=== PATIENT | male | born 1985 | race Caucasian/White ===

== ENCOUNTER 2018-10-25 03:40 | Emergency (ER) | payer SELFPAY ==
[~2018-10-25] VITALS: Ht 180.3 cm; Wt 68.2 kg
[2018-10-25 03:46] VITALS: Ht 180.3 cm; Wt 68.2 kg
[2018-10-25] MEDS ORDERED: HYDROCODON-ACE1 EA10 PO (04:25)
[2018-10-25 04:31] VITALS: BP 122/69
== END 2018-10-25 04:31 | disposition home or self-care (01) ==
LOC: D.ER 03:40
DX: S52.612A Displaced fracture of left ulna styloid process, initial encounter for closed fracture (principal); W18.30XA Fall on same level, unspecified, initial encounter; Y93.89 Activity, other specified; Y92.019 Unspecified place in single-family (private) house as the place of occurrence of the external cause

== ENCOUNTER 2019-06-19 21:28 | Emergency (ER) | payer SELFPAY ==
[~2019-06-19] VITALS: Ht 180.3 cm; Wt 67.3 kg
[~2019-06-19 21:28] MED LIST: HYDROCODON-ACE1 EA10 PO
[2019-06-19 22:17] VITALS: BP 117/70; Ht 180.3 cm; Wt 67.3 kg
== END 2019-06-19 23:00 | disposition left against medical advice (07) ==
LOC: D.ER 21:28
DX: S52.612A Displaced fracture of left ulna styloid process, initial encounter for closed fracture (principal); W19.XXXA Unspecified fall, initial encounter